=== PATIENT | male | born 1990 | race African-American/Black ===

== ENCOUNTER → 2016-11-11 | Outpatient (CLI) | payer OTHER ==
[2016-11-11 12:47] LABS: MEAN CELL VOLUME 88.4 fL (80-100); MEAN CORPUSCULAR HEMOGLOBIN 31.4 pg (25-34); MEAN CORPUSCULAR HGB CONC 35.6 g/dl (32-36); MEAN PLATELET VOLUME 10.5 fL (7.4-10.4); PLATELET COUNT 174 K/uL (130-400); RED BLOOD COUNT 5.09 M/uL (4.7-6.1); WHITE BLOOD COUNT 3.66 K/uL (4.8-10.8)
[2016-11-11 12:59] LABS: ALT/SGPT 22 U/L (12-78); BLOOD UREA NITROGEN 11 mg/dl (7-18); BUN/CREATININE RATIO 11.2 (10-20); CARBON DIOXIDE 29 mmol/L (21-32); CHLORIDE 105 mmol/L (98-107); GLUCOSE 79 mg/dl (70-99); POTASSIUM 3.9 mmol/L (3.5-5.1); SODIUM 139 mmol/L (136-145)
[2016-11-11 13:01] LABS: ALB/GLOB RATIO 1.1 (0.9-2); ALKALINE PHOSPHATASE 95 U/L (45-117); AST/SGOT 16 U/L (15-37)
[2016-11-11 13:21] LABS: COMPLETE YES; EOSINOPHIL % 1.7 %; LYMPH ABS # 1.21 K/uL (1.2-3.4); NEUTROPHILS % 35.7 %; VARIANT LYM ABS # 0.76 K/uL; VARIANT LYMPHOCYTE % 20.9 %
[2016-11-14 10:38] LABS: LSP % CELLS ANALYZED CD4 39 % (30-61); LSP ABSOLUTE CT CD4 717 cells/uL (490-1740); LSP LYMPHOCYTES ABSOLUTE 1839 cells/uL (850-3900)
== END | disposition home or self-care (01) ==
LOC: C.LAB1850 11:41
PROVIDERS: ATTEND Internal Medicine Infectious Disease
DX: B20 Human immunodeficiency virus [HIV] disease (principal)